=== PATIENT | male | born 1965 | race Caucasian/White ===

== ENCOUNTER 2024-02-22 11:47 | Inpatient (IN) | payer OTHER ==
[~2024-02-22] VITALS: Ht 160 cm; Wt 21.0 kg
[2024-02-22 11:49] VITALS: BP 115/90; PULSE 109; RESP 20; TEMP 97.4; O2SAT 99
[2024-02-22 13:00] LABS: BASOPHILS % (AUTO) 0.1 % (0.0-2.0); HEMATOCRIT 49.4 % (36-52); HEMOGLOBIN 17.3 g/dL (12.0-18.0); LYMPHOCYTES # (AUTO) 0.8 K/uL (2.0-11.5); LYMPHOCYTES % (AUTO) 8.1 % (20.5-51.1); MEAN CORPUSCULAR HEMOGLOBIN 32 pg (27-31); MEAN CORPUSCULAR HGB CONC 35 g/dL (33-37); MEAN CORPUSCULAR VOLUME 90.3 fL (80-94); MONOCYTES # (AUTO) 0.5 K/uL (0.8-1.0); NEUTROPHILS # (AUTO) 8.7 K/uL (1.8-7.7); NEUTROPHILS % (AUTO) 86.8 % (42.2-75.2); PLATELET COUNT (AUTO) 191 K/uL (140-450); RED BLOOD CELL COUNT(AUTO) 5.47 MIL/uL (4.20-6.10); RED CELL DISTRIBUTION WIDTH 12.8 % (11.6-13.7); WHITE BLOOD COUNT (AUTO) 10.1 K/uL (4.8-10.8)
[2024-02-22 13:15] LABS: ALBUMIN 4.1 g/dL (3.4-5.0); ANION GAP 26.3 (8-16); CALCIUM 9.6 mg/dL (8.5-10.1); CREATININE 1.3 mg/dL (0.6-1.3); POTASSIUM 4.3 mmol/L (3.5-5.1); TOTAL PROTEIN, SERUM 8.3 g/dL (6.4-8.2)
[2024-02-22 13:16] LABS: LIPASE 19 U/L (16-77)
[2024-02-22] MEDS: NACL 0.9% 1,000 ML IV ONE (13:55)
[2024-02-22] MEDS ORDERED: INSULIN REGULAR, HUMAN 100 UNIT in NACL 0.9% 100 ML IV ONE (14:10)
[2024-02-22 14:18] LABS: APPEARANCE,URINE CLEAR (CLEAR); BILIRUBIN,URINE NEGATIVE (NEGATIVE); BLOOD, URINE NEGATIVE (NEGATIVE); COLOR,URINE YELLOW (YELLOW); LEUKOCYTE ESTERASE ,URINE NEGATIVE (NEGATIVE); NITRITE, URINE NEGATIVE (NEGATIVE); PROTEIN,URINE NEGATIVE (NEGATIVE); UGLUCOSE 3+ (NEGATIVE); UROBILINOGEN,URINE 0.2 EU/dL (0.2 - 1)
[2024-02-22] MEDS: DEXT 5% / NACL 0.45% 1,000 ML IV SCH (14:25)
[2024-02-22] MEDS ORDERED: DEXTROSE 50% 50 ML SYR IVP PRN ×3 (14:25→22:25)
[2024-02-22] MEDS: BLOOD GLUCOSE MONITORING 1 DEV DEV FS SCH ×2 (14:35→17:46)
[2024-02-22] MEDS: INSULIN REGULAR, HUMAN 100 UNIT in NACL 0.9% 100 ML IV SCH (15:03)
[2024-02-22] MEDS: NACL 0.9% 1,000 ML IV SCH (15:19)
[2024-02-22] MEDS ORDERED: cefTRIAXone 1,000 MG VIAL ONE (16:29)
[2024-02-22] MEDS: metroNIDAZOLE 500 MG/NS PREMIX 100 ML IV ONE (16:32)
[2024-02-22] MEDS ORDERED: INSULIN REGULAR, HUMAN 100 UNIT in NACL 0.9% 100 ML IV SCH (17:15)
[2024-02-22 20:46] LABS: ANION GAP 13.2 (8-16); CALCIUM 8.7 mg/dL (8.5-10.1); CARBON DIOXIDE 29.1 mmol/L (21-32); CREATININE 1.1 mg/dL (0.6-1.3); POTASSIUM 3.3 mmol/L (3.5-5.1)
[2024-02-22 20:49] LABS: MAGNESIUM 2.4 mg/dL (1.8-2.4); PHOSPHORUS 3.1 mg/dL (2.5-4.9)
[2024-02-22] MEDS ORDERED: AMPICILLIN/SULBACTAM 1.5 GM VIAL ONE (21:13)
[2024-02-22] MEDS: AMPICILLIN/SULBACTAM 1.5 GM in NACL 0.9% 50 ML IV SCH (21:45)
[2024-02-22 22:00] VITALS: BP 119/80; PULSE 84; PULSE 89; RESP 15; TEMP 97.6; O2SAT 100
[2024-02-22] MEDS ORDERED: MAGNESIUM OXIDE 400 MG TAB PO PRN (22:50)
[2024-02-22 23:00] VITALS: BP 158/116; PULSE 84; RESP 16; O2SAT 99
[2024-02-22] MEDS: KCL 20 MEQ IN 100 mL PREMIX 200 ML IV PRN (23:38)
[2024-02-23] VITALS (15 sets, daily range): BP systolic 97–138; BP diastolic 67–86; PULSE 75–87; RESP 13–23; TEMP 97.5–98.4; O2SAT 96–100
[2024-02-23 00:46] LABS: ANION GAP 12.1 (8-16); CALCIUM 8.4 mg/dL (8.5-10.1); CARBON DIOXIDE 29.8 mmol/L (21-32)
[2024-02-23 00:49] LABS: MAGNESIUM 2.2 mg/dL (1.8-2.4); PHOSPHORUS 3.2 mg/dL (2.5-4.9)
[2024-02-23 00:50] LABS: POTASSIUM 2.9 mmol/L (3.5-5.1)
[2024-02-23] MEDS ORDERED: AMPICILLIN/SULBACTAM 1.5 GM VIAL ONE (04:27)
[2024-02-23 06:30] LABS: BASOPHILS % (AUTO) 0.2 % (0.0-2.0); EOSINOPHILS # (AUTO) 0.1 K/uL (0-0.4); EOSINOPHILS % (AUTO) 0.4 % (0.0-4.0); HEMATOCRIT 39.7 % (36-52); LYMPHOCYTES # (AUTO) 1.9 K/uL (2.0-11.5); LYMPHOCYTES % (AUTO) 13.6 % (20.5-51.1); MEAN CORPUSCULAR HEMOGLOBIN 32 pg (27-31); MEAN CORPUSCULAR HGB CONC 35 g/dL (33-37); MEAN CORPUSCULAR VOLUME 89.5 fL (80-94); MONOCYTES # (AUTO) 1.5 K/uL (0.8-1.0); MONOCYTES % (AUTO) 10.5 % (1.7-9.3); NEUTROPHILS # (AUTO) 10.6 K/uL (1.8-7.7); NEUTROPHILS % (AUTO) 75.3 % (42.2-75.2); PLATELET COUNT (AUTO) 172 K/uL (140-450); RED BLOOD CELL COUNT(AUTO) 4.44 MIL/uL (4.20-6.10); RED CELL DISTRIBUTION WIDTH 12.9 % (11.6-13.7); WHITE BLOOD COUNT (AUTO) 14.1 K/uL (4.8-10.8)
[2024-02-23 06:33] LABS: ANION GAP 12.7 (8-16); CALCIUM 8.3 mg/dL (8.5-10.1); CARBON DIOXIDE 27.7 mmol/L (21-32); CREATININE 0.8 mg/dL (0.6-1.3); POTASSIUM 3.4 mmol/L (3.5-5.1)
[2024-02-23 06:39] LABS: MAGNESIUM 2.3 mg/dL (1.8-2.4); PHOSPHORUS 3.3 mg/dL (2.5-4.9)
[2024-02-23] MEDS: BLOOD GLUCOSE MONITORING 1 DEV DEV FS SCH (07:57)
[2024-02-23] MEDS: INSULIN LISPRO SLIDING SCALE 100 UNITS/ML VIAL SUBQ PRN (08:01)
[2024-02-23 08:16] LABS: MAGNESIUM 2.1 mg/dL (1.8-2.4); PHOSPHORUS 3.3 mg/dL (2.5-4.9)
[2024-02-23 08:17] LABS: ANION GAP 14.7 (8-16); CALCIUM 8.2 mg/dL (8.5-10.1); CARBON DIOXIDE 25.9 mmol/L (21-32); CREATININE 0.8 mg/dL (0.6-1.3); POTASSIUM 3.6 mmol/L (3.5-5.1)
[2024-02-23] MEDS ORDERED: AMOX-999 PO (10:51)
[2024-02-23] MEDS ORDERED: INSU100S22 SUBQ (10:55)
[2024-02-23] MEDS ORDERED: LANC-886 TP (11:00)
[2024-02-23] MEDS ORDERED: BLOO1EAC40 MC (11:01)
[2024-02-23] MEDS ORDERED: LANC1COM6 MC (11:03)
[2024-02-24] VITALS: BP 94/60; PULSE 80; RESP 16; TEMP 98.6; O2SAT 95
[2024-02-24 04:00] VITALS: BP 103/65; PULSE 99; RESP 15; TEMP 99.1; O2SAT 94
[2024-02-24 06:59] LABS: BASOPHILS % (AUTO) 0.5 % (0.0-2.0); EOSINOPHILS # (AUTO) 0.1 K/uL (0-0.4); EOSINOPHILS % (AUTO) 1.3 % (0.0-4.0); HEMATOCRIT 38.4 % (36-52); HEMOGLOBIN 13.4 g/dL (12.0-18.0); LYMPHOCYTES # (AUTO) 2.2 K/uL (2.0-11.5); LYMPHOCYTES % (AUTO) 31.3 % (20.5-51.1); MEAN CORPUSCULAR HEMOGLOBIN 31 pg (27-31); MEAN CORPUSCULAR HGB CONC 35 g/dL (33-37); MEAN CORPUSCULAR VOLUME 89.9 fL (80-94); MONOCYTES # (AUTO) 0.7 K/uL (0.8-1.0); MONOCYTES % (AUTO) 10.8 % (1.7-9.3); NEUTROPHILS # (AUTO) 3.9 K/uL (1.8-7.7); NEUTROPHILS % (AUTO) 56.1 % (42.2-75.2); PLATELET COUNT (AUTO) 165 K/uL (140-450); RED BLOOD CELL COUNT(AUTO) 4.27 MIL/uL (4.20-6.10); RED CELL DISTRIBUTION WIDTH 12.6 % (11.6-13.7); WHITE BLOOD COUNT (AUTO) 6.9 K/uL (4.8-10.8)
[2024-02-24 07:25] LABS: ANION GAP 14.4 (8-16); CARBON DIOXIDE 25.9 mmol/L (21-32); CREATININE 0.8 mg/dL (0.6-1.3); POTASSIUM 3.3 mmol/L (3.5-5.1)
[2024-02-24 08:00] VITALS: BP 104/67; PULSE 76; RESP 16; TEMP 98.6; O2SAT 99
[2024-02-24 12:00] VITALS: BP 104/67; PULSE 76; RESP 16; TEMP 98.6; O2SAT 99
[2024-02-24 13:56] VITALS: BP 104/67; PULSE 76; RESP 16; TEMP 98.6
== END 2024-02-24 15:00 | disposition home or self-care (01) | DRG 871 ==
LOC: MED 11:47 → MTU 17:24 → MIC 18:23 → MTU 02-23 06:51
PROVIDERS: ADMIT Family Medicine; ATTEND Family Medicine
DX: A41.9 Sepsis, unspecified organism (principal); E11.00 Type 2 diabetes mellitus with hyperosmolarity without nonketotic hyperglycemic-hyperosmolar coma (NKHHC); K52.9 Noninfective gastroenteritis and colitis, unspecified; E87.6 Hypokalemia; E11.65 Type 2 diabetes mellitus with hyperglycemia; Z79.899 Other long term (current) drug therapy
CPT/HCPCS: 36415; 36600; 71045; 80048; 80053; 81003; 82009; 82947; 82948; 83036; 83690; 83735; 83880; 84100; 84484; 85025; 87040; 87081; 93005; 96361; 96365; 96367; 99291; J0295; J0696; J1815; J3480; J3490; Q9967

== ENCOUNTER 2024-04-24 14:31 | Inpatient (IN) | payer OTHER ==
[~2024-04-24] VITALS: Ht 170.2 cm; Wt 51.3 kg
[~2024-04-24 14:31] MED LIST: AMOX-999 PO; BLOO1EAC40 MC; INSU100S22 SUBQ; LANC-886 TP; LANC1COM6 MC
[2024-04-24 14:55] VITALS: BP 121/64; PULSE 80; RESP 18; TEMP 98; O2SAT 100
[2024-04-24 17:21] LABS: BASOPHILS # (AUTO) 0.1 K/uL (0.00-0.22); BASOPHILS % (AUTO) 1.1 % (0.0-2.0); EOSINOPHILS # (AUTO) 0.1 K/uL (0-0.4); HEMATOCRIT 41.4 % (36-52); HEMOGLOBIN 14.4 g/dL (12.0-18.0); LYMPHOCYTES # (AUTO) 2.3 K/uL (2.0-11.5); LYMPHOCYTES % (AUTO) 39.7 % (20.5-51.1); MEAN CORPUSCULAR HEMOGLOBIN 32 pg (27-31); MEAN CORPUSCULAR HGB CONC 35 g/dL (33-37); MEAN CORPUSCULAR VOLUME 90.7 fL (80-94); MONOCYTES # (AUTO) 0.4 K/uL (0.8-1.0); NEUTROPHILS # (AUTO) 2.9 K/uL (1.8-7.7); NEUTROPHILS % (AUTO) 50.2 % (42.2-75.2); PLATELET COUNT (AUTO) 290 K/uL (140-450); RED BLOOD CELL COUNT(AUTO) 4.56 MIL/uL (4.20-6.10); WHITE BLOOD COUNT (AUTO) 5.8 K/uL (4.8-10.8)
[2024-04-24] MEDS ORDERED: PIPERACILLIN/TAZOBACTAM 3.375 GM VIAL IV ONE (17:22)
[2024-04-24] MEDS: PIPERACILLIN/TAZOBACTAM 3.375 GM in DEXTROSE 5% 50 ML IV ONE (17:26)
[2024-04-24] MEDS: NACL 0.9% 1,000 ML IV ONE (17:26)
[2024-04-24 17:33] LABS: ANION GAP 12.1 (8-16); CALCIUM 9.3 mg/dL (8.5-10.1); CARBON DIOXIDE 26.7 mmol/L (21-32); POTASSIUM 4.8 mmol/L (3.5-5.1)
[2024-04-24 17:44] LABS: ALBUMIN 3.3 g/dL (3.4-5.0); BILIRUBIN,DIRECT 0.1 mg/dL (0.0-0.3); TOTAL BILIRUBIN 0.3 mg/dL (0.0-1.0); TOTAL PROTEIN, SERUM 7.8 g/dL (6.4-8.2)
[2024-04-24] MEDS ORDERED: HYDROcodone/APAP 5/325 MG 1 TAB TAB PO PRN (19:30)
[2024-04-24] MEDS ORDERED: ONDANSETRON 4 MG/2 ML VIAL IVP PRN (19:30)
[2024-04-24] MEDS ORDERED: POTASSIUM CHLORIDE 10 MEQ TABER PO PRN (19:30)
[2024-04-24] MEDS ORDERED: MAGNESIUM OXIDE 400 MG TAB PO PRN (19:30)
[2024-04-24] MEDS ORDERED: KCL 20 MEQ IN 100 mL PREMIX 200 ML IV PRN (19:30)
[2024-04-24] MEDS ORDERED: ACETAMINOPHEN 325 MG TAB PO PRN (19:30)
[2024-04-24] MEDS ORDERED: MAG SULF 2000 MG/WATER PREMIX 50 ML IV PRN (19:30)
[2024-04-24] MEDS ORDERED: DEXTROSE 50% 50 ML SYR IVP PRN (21:20)
[2024-04-24 21:30] LABS: INR 0.93 (0.8-1.2); PARTIAL THROMBOPLASTIN TIME 29.6 secs (22-35.6); PROTHROMBIN TIME 9.8 secs (10.8-13.4)
[2024-04-24] MEDS: LACTATED RINGERS 1,000 ML IV SCH (21:35)
[2024-04-25 00:30] VITALS: PULSE 66; RESP 18; O2SAT 97
[2024-04-25 04:00] VITALS: BP 126/71; PULSE 62; RESP 18; TEMP 98.1; O2SAT 98
[2024-04-25] MEDS: INSULIN LISPRO SLIDING SCALE 100 UNITS/ML VIAL SUBQ PRN (06:43)
[2024-04-25] MEDS: BLOOD GLUCOSE MONITORING 1 DEV DEV FS SCH (06:43)
[2024-04-25 07:04] LABS: BASOPHILS # (AUTO) 0.1 K/uL (0.00-0.22); BASOPHILS % (AUTO) 0.9 % (0.0-2.0); EOSINOPHILS # (AUTO) 0.1 K/uL (0-0.4); EOSINOPHILS % (AUTO) 2.5 % (0.0-4.0); HEMATOCRIT 36.9 % (36-52); HEMOGLOBIN 12.9 g/dL (12.0-18.0); LYMPHOCYTES # (AUTO) 2.4 K/uL (2.0-11.5); LYMPHOCYTES % (AUTO) 43.9 % (20.5-51.1); MEAN CORPUSCULAR HEMOGLOBIN 32 pg (27-31); MEAN CORPUSCULAR HGB CONC 35 g/dL (33-37); MEAN CORPUSCULAR VOLUME 89.9 fL (80-94); MONOCYTES # (AUTO) 0.4 K/uL (0.8-1.0); MONOCYTES % (AUTO) 6.4 % (1.7-9.3); NEUTROPHILS # (AUTO) 2.6 K/uL (1.8-7.7); NEUTROPHILS % (AUTO) 46.3 % (42.2-75.2); PLATELET COUNT (AUTO) 240 K/uL (140-450); RED BLOOD CELL COUNT(AUTO) 4.11 MIL/uL (4.20-6.10); RED CELL DISTRIBUTION WIDTH 13.1 % (11.6-13.7); WHITE BLOOD COUNT (AUTO) 5.6 K/uL (4.8-10.8)
[2024-04-25 07:35] LABS: ALBUMIN 2.7 g/dL (3.4-5.0); ANION GAP 11.1 (8-16); CALCIUM 8.6 mg/dL (8.5-10.1); CARBON DIOXIDE 26.9 mmol/L (21-32); CREATININE 0.9 mg/dL (0.6-1.3); MAGNESIUM 2.1 mg/dL (1.8-2.4); PHOSPHORUS 3.7 mg/dL (2.5-4.9); TOTAL BILIRUBIN 0.3 mg/dL (0.0-1.0); TOTAL PROTEIN, SERUM 6.3 g/dL (6.4-8.2)
[2024-04-25 08:00] VITALS: BP 109/69; PULSE 70; RESP 18; TEMP 98.5; O2SAT 99
[2024-04-25] MEDS: DOCUSATE SODIUM 100 MG GELCAP PO SCH (08:25)
[2024-04-25 12:00] VITALS: BP 108/68; PULSE 70; RESP 16; O2SAT 96
[2024-04-25 16:00] VITALS: BP 120/70; PULSE 70; RESP 18; TEMP 97.7; O2SAT 99
[2024-04-25 20:00] VITALS: BP 110/66; PULSE 72; PULSE 82; RESP 18; RESP 20; TEMP 97.5; O2SAT 98; O2SAT 99
[2024-04-25] MEDS: ZOLPIDEM 5 MG TAB PO PRN (22:05)
[2024-04-26 04:00] VITALS: BP 108/70; PULSE 69; RESP 18; TEMP 97.8; O2SAT 100
[2024-04-26 06:35] LABS: BASOPHILS % (AUTO) 0.8 % (0.0-2.0); EOSINOPHILS # (AUTO) 0.1 K/uL (0-0.4); EOSINOPHILS % (AUTO) 1.6 % (0.0-4.0); HEMATOCRIT 37.9 % (36-52); HEMOGLOBIN 13.1 g/dL (12.0-18.0); LYMPHOCYTES # (AUTO) 2.3 K/uL (2.0-11.5); LYMPHOCYTES % (AUTO) 42.2 % (20.5-51.1); MEAN CORPUSCULAR HEMOGLOBIN 31 pg (27-31); MEAN CORPUSCULAR HGB CONC 35 g/dL (33-37); MEAN CORPUSCULAR VOLUME 89.9 fL (80-94); MONOCYTES # (AUTO) 0.3 K/uL (0.8-1.0); MONOCYTES % (AUTO) 5.4 % (1.7-9.3); NEUTROPHILS # (AUTO) 2.7 K/uL (1.8-7.7); PLATELET COUNT (AUTO) 250 K/uL (140-450); RED BLOOD CELL COUNT(AUTO) 4.21 MIL/uL (4.20-6.10); RED CELL DISTRIBUTION WIDTH 12.8 % (11.6-13.7); WHITE BLOOD COUNT (AUTO) 5.4 K/uL (4.8-10.8)
[2024-04-26 07:16] LABS: ALBUMIN 2.7 g/dL (3.4-5.0); ANION GAP 11.9 (8-16); CALCIUM 9.1 mg/dL (8.5-10.1); CARBON DIOXIDE 27.2 mmol/L (21-32); CREATININE 0.8 mg/dL (0.6-1.3); PHOSPHORUS 5.1 mg/dL (2.5-4.9); POTASSIUM 4.1 mmol/L (3.5-5.1); TOTAL BILIRUBIN 0.3 mg/dL (0.0-1.0); TOTAL PROTEIN, SERUM 6.3 g/dL (6.4-8.2)
[2024-04-26 08:00] VITALS: PULSE 68; RESP 18; TEMP 97.9; O2SAT 99
[2024-04-26 16:00] VITALS: BP 130/79; PULSE 79; RESP 18; TEMP 98.6; O2SAT 100
[2024-04-26 20:00] VITALS: TEMP 97.6
[2024-04-27 04:00] VITALS: BP 137/82; PULSE 61; RESP 20; TEMP 97.9; O2SAT 100
[2024-04-27 06:22] LABS: BASOPHILS % (AUTO) 0.8 % (0.0-2.0); EOSINOPHILS # (AUTO) 0.1 K/uL (0-0.4); EOSINOPHILS % (AUTO) 1.4 % (0.0-4.0); HEMATOCRIT 38.5 % (36-52); HEMOGLOBIN 13.4 g/dL (12.0-18.0); LYMPHOCYTES # (AUTO) 2.6 K/uL (2.0-11.5); LYMPHOCYTES % (AUTO) 43.3 % (20.5-51.1); MEAN CORPUSCULAR HEMOGLOBIN 31 pg (27-31); MEAN CORPUSCULAR HGB CONC 35 g/dL (33-37); MEAN CORPUSCULAR VOLUME 89.9 fL (80-94); MONOCYTES # (AUTO) 0.4 K/uL (0.8-1.0); NEUTROPHILS % (AUTO) 48.5 % (42.2-75.2); PLATELET COUNT (AUTO) 236 K/uL (140-450); RED BLOOD CELL COUNT(AUTO) 4.28 MIL/uL (4.20-6.10); RED CELL DISTRIBUTION WIDTH 12.7 % (11.6-13.7); WHITE BLOOD COUNT (AUTO) 6.1 K/uL (4.8-10.8)
[2024-04-27 06:57] LABS: ALBUMIN 2.7 g/dL (3.4-5.0); ANION GAP 12.1 (8-16); CALCIUM 8.6 mg/dL (8.5-10.1); PHOSPHORUS 3.9 mg/dL (2.5-4.9); POTASSIUM 4.1 mmol/L (3.5-5.1); TOTAL BILIRUBIN 0.2 mg/dL (0.0-1.0); TOTAL PROTEIN, SERUM 6.3 g/dL (6.4-8.2)
[2024-04-27 08:00] VITALS: PULSE 81; RESP 18; TEMP 97.1; O2SAT 96
[2024-04-27 16:00] VITALS: BP 112/76; PULSE 69; RESP 18; TEMP 98.2; O2SAT 98
[2024-04-27 20:00] VITALS: PULSE 74; RESP 16; TEMP 96.9; O2SAT 98
[2024-04-27] MEDS: PIPERACILLIN/TAZOBACTAM 3.375 GM in DEXTROSE 5% 50 ML IV SCH (20:23)
[2024-04-28 04:00] VITALS: BP 119/73; PULSE 69; RESP 18; TEMP 97.1; O2SAT 98
[2024-04-28 06:41] LABS: BASOPHILS # (AUTO) 0.1 K/uL (0.00-0.22); BASOPHILS % (AUTO) 0.7 % (0.0-2.0); EOSINOPHILS # (AUTO) 0.1 K/uL (0-0.4); EOSINOPHILS % (AUTO) 1.4 % (0.0-4.0); HEMOGLOBIN 12.5 g/dL (12.0-18.0); LYMPHOCYTES # (AUTO) 2.7 K/uL (2.0-11.5); LYMPHOCYTES % (AUTO) 37.7 % (20.5-51.1); MEAN CORPUSCULAR HEMOGLOBIN 31 pg (27-31); MEAN CORPUSCULAR HGB CONC 35 g/dL (33-37); MONOCYTES # (AUTO) 0.5 K/uL (0.8-1.0); MONOCYTES % (AUTO) 7.3 % (1.7-9.3); NEUTROPHILS # (AUTO) 3.8 K/uL (1.8-7.7); NEUTROPHILS % (AUTO) 52.9 % (42.2-75.2); PLATELET COUNT (AUTO) 230 K/uL (140-450); RED BLOOD CELL COUNT(AUTO) 3.99 MIL/uL (4.20-6.10); RED CELL DISTRIBUTION WIDTH 12.9 % (11.6-13.7); WHITE BLOOD COUNT (AUTO) 7.2 K/uL (4.8-10.8)
[2024-04-28 06:50] LABS: ALBUMIN 2.7 g/dL (3.4-5.0); ANION GAP 10.9 (8-16); CALCIUM 8.7 mg/dL (8.5-10.1); CREATININE 0.9 mg/dL (0.6-1.3); MAGNESIUM 1.8 mg/dL (1.8-2.4); PHOSPHORUS 3.8 mg/dL (2.5-4.9); POTASSIUM 3.9 mmol/L (3.5-5.1); TOTAL BILIRUBIN 0.3 mg/dL (0.0-1.0); TOTAL PROTEIN, SERUM 6.2 g/dL (6.4-8.2)
[2024-04-28 08:00] VITALS: PULSE 63; RESP 18; TEMP 97.9; O2SAT 100
[2024-04-28 16:00] VITALS: BP 100/57; PULSE 90; RESP 18; TEMP 98; O2SAT 100
[2024-04-28 20:00] VITALS: PULSE 65; RESP 18; TEMP 97.4; O2SAT 100
[2024-04-29 04:00] VITALS: BP 108/52; PULSE 75; RESP 18; TEMP 97.6; O2SAT 98
[2024-04-29] MEDS: ceFAZolin 1,000 MG VIAL ONE ×2 (04:11→04:12)
[2024-04-29 07:18] LABS: BASOPHILS % (AUTO) 0.6 % (0.0-2.0); EOSINOPHILS # (AUTO) 0.1 K/uL (0-0.4); EOSINOPHILS % (AUTO) 1.8 % (0.0-4.0); HEMATOCRIT 36.6 % (36-52); HEMOGLOBIN 12.6 g/dL (12.0-18.0); LYMPHOCYTES # (AUTO) 3.2 K/uL (2.0-11.5); LYMPHOCYTES % (AUTO) 41.6 % (20.5-51.1); MEAN CORPUSCULAR HEMOGLOBIN 31 pg (27-31); MEAN CORPUSCULAR HGB CONC 35 g/dL (33-37); MEAN CORPUSCULAR VOLUME 89.7 fL (80-94); MONOCYTES # (AUTO) 0.4 K/uL (0.8-1.0); MONOCYTES % (AUTO) 5.9 % (1.7-9.3); NEUTROPHILS # (AUTO) 3.8 K/uL (1.8-7.7); NEUTROPHILS % (AUTO) 50.1 % (42.2-75.2); PLATELET COUNT (AUTO) 223 K/uL (140-450); RED BLOOD CELL COUNT(AUTO) 4.08 MIL/uL (4.20-6.10); RED CELL DISTRIBUTION WIDTH 12.6 % (11.6-13.7); WHITE BLOOD COUNT (AUTO) 7.6 K/uL (4.8-10.8)
[2024-04-29 07:53] LABS: ALBUMIN 2.9 g/dL (3.4-5.0); ANION GAP 12.4 (8-16); CALCIUM 8.7 mg/dL (8.5-10.1); CARBON DIOXIDE 27.5 mmol/L (21-32); CREATININE 1.1 mg/dL (0.6-1.3); MAGNESIUM 1.9 mg/dL (1.8-2.4); PHOSPHORUS 3.8 mg/dL (2.5-4.9); POTASSIUM 3.9 mmol/L (3.5-5.1); TOTAL BILIRUBIN 0.2 mg/dL (0.0-1.0); TOTAL PROTEIN, SERUM 6.5 g/dL (6.4-8.2)
[2024-04-29 08:00] VITALS: BP 128/78; PULSE 64; RESP 18; TEMP 97.8; O2SAT 100
[2024-04-29] MEDS: metroNIDAZOLE 500 MG TAB PO SCH (09:15)
[2024-04-29 20:00] VITALS: BP 130/77; PULSE 64; PULSE 67; RESP 16; TEMP 97.9; O2SAT 98
[2024-04-30 04:00] VITALS: BP 118/69; PULSE 67; RESP 16; TEMP 98; O2SAT 99
[2024-04-30 06:56] LABS: BASOPHILS # (AUTO) 0.1 K/uL (0.00-0.22); BASOPHILS % (AUTO) 0.8 % (0.0-2.0); EOSINOPHILS # (AUTO) 0.1 K/uL (0-0.4); EOSINOPHILS % (AUTO) 1.8 % (0.0-4.0); HEMATOCRIT 37.6 % (36-52); HEMOGLOBIN 12.8 g/dL (12.0-18.0); LYMPHOCYTES # (AUTO) 2.9 K/uL (2.0-11.5); LYMPHOCYTES % (AUTO) 38.5 % (20.5-51.1); MEAN CORPUSCULAR HEMOGLOBIN 31 pg (27-31); MEAN CORPUSCULAR HGB CONC 34 g/dL (33-37); MEAN CORPUSCULAR VOLUME 90.2 fL (80-94); MONOCYTES # (AUTO) 0.5 K/uL (0.8-1.0); MONOCYTES % (AUTO) 6.6 % (1.7-9.3); NEUTROPHILS # (AUTO) 3.9 K/uL (1.8-7.7); NEUTROPHILS % (AUTO) 52.3 % (42.2-75.2); PLATELET COUNT (AUTO) 226 K/uL (140-450); RED BLOOD CELL COUNT(AUTO) 4.17 MIL/uL (4.20-6.10); RED CELL DISTRIBUTION WIDTH 12.9 % (11.6-13.7); WHITE BLOOD COUNT (AUTO) 7.5 K/uL (4.8-10.8)
[2024-04-30 07:18] LABS: ANION GAP 11.3 (8-16); CALCIUM 8.7 mg/dL (8.5-10.1); CARBON DIOXIDE 28.7 mmol/L (21-32); CREATININE 0.9 mg/dL (0.6-1.3)
[2024-04-30 08:00] VITALS: BP 125/72; PULSE 66; RESP 20; TEMP 98; O2SAT 100
[2024-04-30 20:00] VITALS: BP 113/70; PULSE 75; RESP 16; TEMP 98.1; O2SAT 100; O2SAT 98
[2024-05-01 04:00] VITALS: BP 110/67; PULSE 78; RESP 16; TEMP 98.4; O2SAT 97
[2024-05-01 07:09] LABS: BASOPHILS # (AUTO) 0.1 K/uL (0.00-0.22); BASOPHILS % (AUTO) 0.8 % (0.0-2.0); EOSINOPHILS # (AUTO) 0.2 K/uL (0-0.4); EOSINOPHILS % (AUTO) 2.2 % (0.0-4.0); LYMPHOCYTES # (AUTO) 3.1 K/uL (2.0-11.5); LYMPHOCYTES % (AUTO) 44.8 % (20.5-51.1); MEAN CORPUSCULAR HEMOGLOBIN 31 pg (27-31); MEAN CORPUSCULAR HGB CONC 34 g/dL (33-37); MEAN CORPUSCULAR VOLUME 89.7 fL (80-94); MONOCYTES # (AUTO) 0.5 K/uL (0.8-1.0); MONOCYTES % (AUTO) 7.8 % (1.7-9.3); NEUTROPHILS # (AUTO) 3.1 K/uL (1.8-7.7); NEUTROPHILS % (AUTO) 44.4 % (42.2-75.2); PLATELET COUNT (AUTO) 213 K/uL (140-450); RED CELL DISTRIBUTION WIDTH 12.8 % (11.6-13.7); WHITE BLOOD COUNT (AUTO) 6.9 K/uL (4.8-10.8)
[2024-05-01 08:00] VITALS: BP 132/75; PULSE 75; PULSE 79; PULSE 84; RESP 16; RESP 19; TEMP 98.1; O2SAT 98; O2SAT 99
[2024-05-01 08:14] LABS: ANION GAP 11.9 (8-16); CALCIUM 8.7 mg/dL (8.5-10.1); CARBON DIOXIDE 26.9 mmol/L (21-32); CREATININE 0.9 mg/dL (0.6-1.3); POTASSIUM 3.8 mmol/L (3.5-5.1)
[2024-05-01 16:00] VITALS: BP 112/67; PULSE 79; RESP 16; TEMP 98.2; O2SAT 98
[2024-05-01 20:00] VITALS: PULSE 80; RESP 16; TEMP 97.6; O2SAT 99
[2024-05-02 04:00] VITALS: BP 116/74; PULSE 79; RESP 18; TEMP 97.4; O2SAT 98
[2024-05-02 08:00] VITALS: BP 119/72; PULSE 86; RESP 16; TEMP 97.2; O2SAT 98
[2024-05-02 16:00] VITALS: BP 120/75; PULSE 75; RESP 19; TEMP 97.8; O2SAT 100
[2024-05-02 20:00] VITALS: BP 114/68; PULSE 98; RESP 16; RESP 18; TEMP 98.4; TEMP 98.9; O2SAT 99
[2024-05-03 04:00] VITALS: BP 114/77; PULSE 88; RESP 16; TEMP 98.3; O2SAT 99
[2024-05-03 08:00] VITALS: PULSE 93; RESP 18; TEMP 98.3; O2SAT 97
[2024-05-03] MEDS ORDERED: ACET-1182 PO (14:24)
[2024-05-03] MEDS ORDERED: HEPA500056 SUBQ (14:24)
[2024-05-03] MEDS ORDERED: CEFA2VIA3 IV (14:24)
[2024-05-03] MEDS ORDERED: METR-435 PO (14:24)
[2024-05-03 15:49] LABS: BASOPHILS # (AUTO) 0.1 K/uL (0.00-0.22); BASOPHILS % (AUTO) 0.8 % (0.0-2.0); EOSINOPHILS # (AUTO) 0.1 K/uL (0-0.4); EOSINOPHILS % (AUTO) 1.7 % (0.0-4.0); HEMATOCRIT 34.9 % (36-52); HEMOGLOBIN 11.9 g/dL (12.0-18.0); LYMPHOCYTES # (AUTO) 2.7 K/uL (2.0-11.5); LYMPHOCYTES % (AUTO) 39.6 % (20.5-51.1); MEAN CORPUSCULAR HEMOGLOBIN 31 pg (27-31); MEAN CORPUSCULAR HGB CONC 34 g/dL (33-37); MEAN CORPUSCULAR VOLUME 90.6 fL (80-94); MONOCYTES # (AUTO) 0.6 K/uL (0.8-1.0); MONOCYTES % (AUTO) 8.9 % (1.7-9.3); NEUTROPHILS # (AUTO) 3.3 K/uL (1.8-7.7); PLATELET COUNT (AUTO) 195 K/uL (140-450); RED BLOOD CELL COUNT(AUTO) 3.85 MIL/uL (4.20-6.10); RED CELL DISTRIBUTION WIDTH 13.5 % (11.6-13.7); WHITE BLOOD COUNT (AUTO) 6.8 K/uL (4.8-10.8)
[2024-05-03 16:00] VITALS: BP 111/65; PULSE 72; RESP 18; TEMP 97.3; O2SAT 97
[2024-05-03 20:00] VITALS: BP 134/69; PULSE 91; RESP 18; TEMP 97.9; O2SAT 100; O2SAT 91
[2024-05-04 04:00] VITALS: BP 104/69; PULSE 91; RESP 18; TEMP 97.6; O2SAT 99
[2024-05-04 08:00] VITALS: PULSE 72; RESP 18; TEMP 97.7; O2SAT 96
[2024-05-04] MEDS: BUPIVACAINE-MPF 0.25% 30 ML VIAL INJ ONE (13:55)
[2024-05-04] MEDS: LIDOCAINE 1% 500 MG/50 ML VIAL ONE (13:55)
[2024-05-04] MEDS: HYDROGEN PEROXIDE 3% 240 ML BTL TP ONE (14:35)
[2024-05-04 16:00] VITALS: BP 109/72; PULSE 77; RESP 17; TEMP 98; O2SAT 100
[2024-05-04 20:00] VITALS: BP 112/64; PULSE 87; RESP 18; TEMP 97.8; O2SAT 100
[2024-05-05 08:00] VITALS: BP 118/72; PULSE 87; RESP 17; TEMP 208.8; TEMP 98.2; O2SAT 99
[2024-05-05 11:19] VITALS: PULSE 89; RESP 17; O2SAT 99
[2024-05-05 20:00] VITALS: BP 105/62; PULSE 70; RESP 18; TEMP 97.9; O2SAT 100
[2024-05-06 04:00] VITALS: BP 117/72; PULSE 70; RESP 18; TEMP 98; O2SAT 100
[2024-05-06 08:00] VITALS: PULSE 76; RESP 18; TEMP 97.8; O2SAT 98
[2024-05-06 16:00] VITALS: BP 107/71; PULSE 72; RESP 18; TEMP 97.3; O2SAT 99
[2024-05-06 20:00] VITALS: BP 103/63; PULSE 83; RESP 18; TEMP 97; O2SAT 98
[2024-05-07 08:00] VITALS: BP 101/69; PULSE 75; RESP 18; TEMP 97.1; O2SAT 98; O2SAT 99
[2024-05-07 16:00] VITALS: BP 104/65; PULSE 72; RESP 18; TEMP 97.8; O2SAT 99
[2024-05-07 20:00] VITALS: BP 113/74; PULSE 75; PULSE 77; RESP 18; TEMP 97.1; TEMP 97.5; O2SAT 100; O2SAT 98
[2024-05-08 08:00] VITALS: BP 112/67; PULSE 79; RESP 17; RESP 18; TEMP 97.8; O2SAT 99
[2024-05-08 16:00] VITALS: BP 132/72; PULSE 65; RESP 18; TEMP 98.5; O2SAT 99
[2024-05-08 20:00] VITALS: BP 109/68; PULSE 85; RESP 18; TEMP 98.2; O2SAT 100
[2024-05-09 04:00] VITALS: BP 103/68; PULSE 82; RESP 16; TEMP 98.3; O2SAT 96
[2024-05-09 08:00] VITALS: PULSE 72; RESP 18; TEMP 97.8; O2SAT 100
[2024-05-09 16:00] VITALS: BP 147/67; PULSE 84; RESP 18; TEMP 96.6; O2SAT 97
[2024-05-09 20:00] VITALS: PULSE 76; RESP 18; TEMP 97.9; O2SAT 98
[2024-05-10 08:00] VITALS: BP 121/78; PULSE 65; RESP 18; TEMP 97.2; O2SAT 98
[2024-05-10 16:00] VITALS: BP 125/73; PULSE 70; RESP 17; TEMP 97.5; O2SAT 97
[2024-05-10 20:00] VITALS: BP 104/70; PULSE 80; RESP 18; TEMP 97.4; O2SAT 99
[2024-05-10 23:19] LABS: BASOPHILS # (AUTO) 0.1 K/uL (0.00-0.22); BASOPHILS % (AUTO) 1.1 % (0.0-2.0); EOSINOPHILS # (AUTO) 0.2 K/uL (0-0.4); HEMATOCRIT 36.7 % (36-52); HEMOGLOBIN 12.5 g/dL (12.0-18.0); LYMPHOCYTES # (AUTO) 2.7 K/uL (2.0-11.5); LYMPHOCYTES % (AUTO) 47.2 % (20.5-51.1); MEAN CORPUSCULAR HEMOGLOBIN 31 pg (27-31); MEAN CORPUSCULAR HGB CONC 34 g/dL (33-37); MONOCYTES # (AUTO) 0.6 K/uL (0.8-1.0); MONOCYTES % (AUTO) 9.6 % (1.7-9.3); NEUTROPHILS # (AUTO) 2.3 K/uL (1.8-7.7); NEUTROPHILS % (AUTO) 39.1 % (42.2-75.2); PLATELET COUNT (AUTO) 180 K/uL (140-450); RED BLOOD CELL COUNT(AUTO) 4.03 MIL/uL (4.20-6.10); WHITE BLOOD COUNT (AUTO) 5.8 K/uL (4.8-10.8)
[2024-05-10 23:33] LABS: ANION GAP 11.2 (8-16); CALCIUM 8.5 mg/dL (8.5-10.1); CARBON DIOXIDE 29.1 mmol/L (21-32); CREATININE 1.2 mg/dL (0.6-1.3); POTASSIUM 4.3 mmol/L (3.5-5.1)
[2024-05-11 04:00] VITALS: BP 103/64; PULSE 73; RESP 18; TEMP 97.2; O2SAT 98
[2024-05-11 08:00] VITALS: BP 119/76; PULSE 70; PULSE 80; RESP 18; TEMP 97.4; O2SAT 98; O2SAT 99
[2024-05-11 16:00] VITALS: BP 135/71; PULSE 70; RESP 18; TEMP 98; O2SAT 93
[2024-05-11 20:00] VITALS: BP 112/69; PULSE 86; RESP 18; TEMP 97.2; TEMP 97.4; O2SAT 99
[2024-05-12 08:00] VITALS: BP 108/65; PULSE 72; PULSE 86; RESP 18; TEMP 96.9; TEMP 97.4; O2SAT 94; O2SAT 99
[2024-05-12 16:00] VITALS: BP 116/67; PULSE 69; RESP 18; TEMP 98; O2SAT 100
[2024-05-12 20:00] VITALS: BP 107/66; PULSE 77; PULSE 78; RESP 18; TEMP 97.6; TEMP 98; O2SAT 96; O2SAT 97
[2024-05-13 04:00] VITALS: BP 118/65; PULSE 78; RESP 18; TEMP 98; O2SAT 97
[2024-05-13 08:00] VITALS: BP_SYST 112; BP_DIAS 69; BP_DIAS 70; PULSE 72; PULSE 78; RESP 18; TEMP 98; O2SAT 97; O2SAT 98; O2SAT 99
[2024-05-13 09:39] LABS: BASOPHILS # (AUTO) 0.1 K/uL (0.00-0.22); BASOPHILS % (AUTO) 1.1 % (0.0-2.0); EOSINOPHILS # (AUTO) 0.2 K/uL (0-0.4); EOSINOPHILS % (AUTO) 3.1 % (0.0-4.0); HEMATOCRIT 39.2 % (36-52); HEMOGLOBIN 13.4 g/dL (12.0-18.0); LYMPHOCYTES # (AUTO) 2.2 K/uL (2.0-11.5); LYMPHOCYTES % (AUTO) 38.3 % (20.5-51.1); MEAN CORPUSCULAR HEMOGLOBIN 31 pg (27-31); MEAN CORPUSCULAR HGB CONC 34 g/dL (33-37); MEAN CORPUSCULAR VOLUME 91.9 fL (80-94); MONOCYTES # (AUTO) 0.5 K/uL (0.8-1.0); MONOCYTES % (AUTO) 8.7 % (1.7-9.3); NEUTROPHILS # (AUTO) 2.8 K/uL (1.8-7.7); NEUTROPHILS % (AUTO) 48.8 % (42.2-75.2); PLATELET COUNT (AUTO) 200 K/uL (140-450); RED BLOOD CELL COUNT(AUTO) 4.27 MIL/uL (4.20-6.10); RED CELL DISTRIBUTION WIDTH 14.3 % (11.6-13.7); WHITE BLOOD COUNT (AUTO) 5.8 K/uL (4.8-10.8)
[2024-05-13 10:02] LABS: ANION GAP 10.6 (8-16); CALCIUM 8.9 mg/dL (8.5-10.1); CARBON DIOXIDE 29.2 mmol/L (21-32); CREATININE 0.9 mg/dL (0.6-1.3); POTASSIUM 3.8 mmol/L (3.5-5.1)
[2024-05-13 16:00] VITALS: BP 111/66; PULSE 74; RESP 18; TEMP 97.6; O2SAT 97
[2024-05-13 16:47] VITALS: O2SAT 99
[2024-05-13] MEDS ORDERED: AMOX-999 PO (17:54)
[2024-05-13 18:06] VITALS: BP 111/64; PULSE 76; RESP 18; TEMP 97.6
== END 2024-05-13 20:45 | DRG 629 ==
LOC: MED 14:31 → MTU 19:36
PROVIDERS: ADMIT Hospitalist; ATTEND Hospitalist
PROC: 02HV33Z Insertion of Infusion Device into Superior Vena Cava, Percutaneous Approach (ICD-10-PCS; 2024-04-27)
PROC: B548ZZA Ultrasonography of Superior Vena Cava, Guidance (ICD-10-PCS; 2024-04-27)
PROC: 0Y9M0ZZ Drainage of Right Foot, Open Approach (ICD-10-PCS; 2024-04-27)
PROC: 0QBQ0ZZ Excision of Right Toe Phalanx, Open Approach (ICD-10-PCS; principal; 2024-05-04 09:50)
DX: E11.69 Type 2 diabetes mellitus with other specified complication (principal); E44.0 Moderate protein-calorie malnutrition; L03.115 Cellulitis of right lower limb; M86.8X7 Other osteomyelitis, ankle and foot; Z68.1 Body mass index [BMI] 19.9 or less, adult; E11.51 Type 2 diabetes mellitus with diabetic peripheral angiopathy without gangrene; E11.621 Type 2 diabetes mellitus with foot ulcer; L97.519 Non-pressure chronic ulcer of other part of right foot with unspecified severity; E11.40 Type 2 diabetes mellitus with diabetic neuropathy, unspecified; Z79.899 Other long term (current) drug therapy
CPT/HCPCS: 36415; 71045; 73630; 80048; 80053; 80076; 82948; 83735; 84100; 85025; 85610; 85730; 86140; 87040; 87070; 87075; 87081; 87186; 87205; 88304; 93922; 93925; 96365; 97116; 97163-GP; 99285; J0690; J1644; J1815; J2001; J2543; J3490; J7060; Q0092